=== PATIENT | male | born 1990 | race Caucasian/White ===

== ENCOUNTER 2018-01-23 11:51 | Emergency (ER) | payer MEDICAID ==
[2018-01-23] MEDS ORDERED: ONDANSETRON 4 MG TAB.RAPDIS PO ONE (12:08)
[2018-01-23] MEDS ORDERED: KETOROLAC TROMETHAMINE 60 MG/2 ML SDV IM ONE (12:09)
--- NOTE | 2018-01-23 12:11 | ER Document Report ---
ED GI/ - General Chief Complaint: Abdominal Pain Stated Complaint: ABDOMINAL PAIN Time Seen by Provider: 01/23/18 12:08 Notes: Chief complaint: abdominal pain: History of complain:( obtained from----patient) 27 years old male presents today with right lower quadrant abdominal pain since Saturday that is 4 days ago. The pain is centered around the right groin, first 2 days the pain was persistently less today kind of eased off and then came back again this morning therefore presented to the ED. Associated with nausea, no vomiting denies any hematuria dysuria or frequency. Has not had any bowel movement since last Saturday that is 5 days. No other constitutional symptoms Onset: Sudden woke him up middle of the night Duration: 4 days Severity: Moderate to severe Quality: Sharp Context: History of kidney stones Exacerbating factor and relieving factors: Change of position REVIEW OF SYSTEMS: CONSTITUTIONAL : Denies fever, chills, or sweats. Denies recent illness. EENT: Denies eye, ear, throat, or mouth pain or symptoms. Denies nasal or sinus congestion or discharge. Denies throat, tongue, or mouth swelling or difficulty swallowing. CARDIOVASCULAR: Denies chest pain. Denies palpitations or racing or irregular heart beat. Denies ankle edema. RESPIRATORY: Denies cough, cold, or chest congestion. Denies shortness of breath, difficulty breathing, or wheezing. GASTROINTESTINAL: Denies distention. Denies nausea, vomiting, or diarrhea. Denies blood in vomitus, stools, or per rectum. Denies black, tarry stools. Denies constipation. GENITOURINARY: Denies difficulty urinating, painful urination, burning, frequency, blood in urine, or discharge. FEMALE GENITOURINARY: Denies vaginal bleeding, heavy or abnormal periods, irregular periods. Denies vaginal discharge or odor. MUSCULOSKELETAL: Denies back or neck pain or stiffness. Denies joint pain or swelling. SKIN: Denies rash, lesions or sores. HEMATOLOGIC : Denies easy bruising or bleeding. LYMPHATIC: Denies swollen, enlarged glands. NEUROLOGICAL: Denies confusion or altered mental status. Denies passing out or loss of consciousness. Denies dizziness or lightheadedness. Denies headache. Denies weakness or paralysis or loss of use of either side. Denies problems with gait or speech. Denies sensory loss, numbness, or tingling. Denies seizures. PSYCHIATRIC: Denies anxiety or stress. Denies depression, suicidal ideation, or homicidal ideation. ALL OTHER SYSTEMS REVIEWED AND NEGATIVE. PHYSICAL EXAMINATION: GENERAL: Well-appearing, well-nourished and in no acute distress. HEAD: Atraumatic, normocephalic. EYES: Pupils equal round and reactive to light, extraocular movements intact, conjunctiva are normal. ENT: Nares patent, oropharynx clear without exudates. Moist mucous membranes. NECK: Normal range of motion, supple without lymphadenopathy LUNGS: Breath sounds clear to auscultation bilaterally and equal. No wheezes rales or rhonchi. HEART: Regular rate and rhythm without murmurs ABDOMEN: Soft, sharp tenderness noted in the right inguinal region, questionable inguinal hernia., nondistended abdomen. No guarding, no rebound. No masses appreciated. Genital exam-normal scrotum nontender testicles. Musculoskeletal: Normal range of motion, no pitting or edema. No cyanosis. NEUROLOGICAL: Cranial nerves grossly intact. Normal speech, normal gait. Normal sensory, motor exams PSYCH: Normal mood, normal affect. SKIN: Warm, Dry, normal turgor, no rashes or lesions noted. Dictation was performed using [employer] voice recognition software TRAVEL OUTSIDE OF THE [place] IN LAST 30 DAYS: No - Related Data Allergies/Adverse Reactions: No Known Allergies Allergy (Unverified 01/23/18 12:08) Past Medical History - Social History Smoking Status: Never Smoker Chew tobacco use (# tins/day): No Frequency of alcohol use: None Drug Abuse: None Family History: Reviewed & Not Pertinent Patient has suicidal ideation: No Patient has homicidal ideation: No Renal/ Medical History: Reports: Hx Kidney Stones. Denies: Hx Peritoneal Dialysis Past Surgical History: Reports: Hx Oral Surgery - wisdom teeth Physical Exam - Vital signs Vitals: Temp Pulse Resp BP Pulse Ox 97.5 F 57 L 22 H 131/81 H 98 01/23/18 11:55 01/23/18 11:55 01/23/18 11:55 01/23/18 11:55 01/23/18 11:55 Course - Vital Signs Vital signs: Temp Pulse Resp BP Pulse Ox 97.6 F 66 18 114/64 99 01/23/18 14:20 01/23/18 14:20 01/23/18 14:20 01/23/18 14:20 01/23/18 14:20 - Laboratory Result Diagrams: 01/23/18 12:25 01/23/18 12:25 Laboratory results interpreted by me: 01/23/18 01/23/18 12:25 13:12 Glucose 111 H Urine Protein 30 H Urine Blood MODERATE H Discharge - Discharge Clinical Impression: Right ureteral calculus, Hydronephrosis, right Condition: Stable Disposition: HOME, SELF-CARE Additional Instructions: Kidney Stone You are passing or have passed a kidney stone. These stones are usually due to increased calcium or uric acid concentrations in your urine. Stones within the kidney itself are not painful. The pain occurs as the stone leaves the kidney to pass down the long tube, called the ureter, leading to the bladder. If the stone is small, it will usually pass by itself. Most patients can pass the stone at home. You will usually receive medications for pain, nausea or vomiting, and sometimes a medication to assist in passing the kidney stone. However, if the pain is very severe or if vomiting prevents you from taking oral pain medications, you may need to return for further treatment. Drink three or four quarts of fluids per day. You will be given pain medication (if needed) and urine strainers. Strain all your urine to see if the stone passes. If your doctor has asked you to bring the stone in for analysis, return with the stone once it has passed. Return if pain or vomiting become severe, if you develop a high fever, if you are unable to pass your urine, or if other unusual symptoms occur. Take ibuprofen 800 mg every 8 hours as needed for pain. Use the Pyridium also known as Azo 200 mg every 8 hours for the next 2 days to decrease pain as well. If these 2 medications do not relieve your pain you may then try the Percocet as well. Take the Flomax 1 tablet once a day to help the stone pass more easily. Return to the emergency department for any new or concerning symptoms. Prescriptions: Oxycodone HCl/Acetaminophen [Percocet 5-325 mg Tablet] 1 - 2 tab PO Q4H PRN #15 tablet PRN Reason: Phenazopyridine HCl [Pyridium 200 mg Tablet] 200 mg PO TID #7 tablet Tamsulosin HCl [Flomax 0.4 mg Cap.sr] 0.4 mg PO DAILY #7 cap.sr.24h Forms: Return to Work Referrals: SANDRITA OTERO MD [ACTIVE STAFF] - Follow up as needed
--- NOTE | 2018-01-23 13:03 | RADIOLOGY REPORT (SQ) ---
EXAM DESCRIPTION: CT LTD RENAL STONE PROTOCOL ON COMPLETED DATE/TIME: 01/23/2018 12:48 pm REASON FOR STUDY: Right abdominal pain COMPARISON: None. TECHNIQUE: CT scan of the abdomen and pelvis performed without intravenous or oral contrast. Images reviewed with lung, soft tissue, and bone windows. Reconstructed coronal and sagittal MPR images revi ewed. All images stored on PACS. All CT scanners at this facility use dose modulation, iterative reconstruction, and/or weight based d osing when appropriate to reduce radiation dose to as low as reasonably achievable (ALARA). [facility]: Dose Right [facility]: CareDose [facility]: Dose Right [facility]: Teradose 4D [facility]: Smart Cellrox RADIATION DOSE: CT Rad equipment meets quality standard of care and radiation dose reduction techniq ues were employed. CTDIvol: 4.8 mGy. DLP: 241 mGy-cm.mGy. LIMITATIONS: None. FINDINGS: LOWER CHEST: No significant findings. No nodules or infiltrates. NON-CONTRASTED LIVER, SPLEEN, ADRENALS: Evaluation limited by lack of IV contrast. No identified sign ificant masses. PANCREAS: No masses. No peripancreatic inflammatory changes. GALLBLADDER: No identified stones by CT criteria. No inflammatory changes to suggest cholecystitis. RIGHT KIDNEY AND URETER: No suspicious masses. Assessment limited by lack of IV contrast. Tiny less than 2 mm intrarenal nonobstructive calculi are present right mid and lower pole kidney. There is a 3 mm stone in the right ureter, at the level where the ureter crosses over the iliac vessels best sh own on axial image 54 and coronal image 30. Very mild right hydronephrosis and upper hydroureter. LEFT KIDNEY AND URETER: No suspicious masses. Assessment limited by lack of IV contrast. 3 mm left midpole intrarenal nonobstructive stone. No hydronephrosis or hydroureter. AORTA AND RETROPERITONEUM: No aneurysm. No retroperitoneal masses or adenopathy. BOWEL AND PERITONEAL CAVITY: No obvious masses or inflammatory changes. No free fluid. APPENDIX: Normal. PELVIS, BLADDER, AND ABDOMINAL WALL:No abnormal masses. No free fluid. Bladder normal. BONES: No significant findings. OTHER: No other significant finding. IMPRESSION: 3 mm calculus right ureter at the level where the ureter crosses over the iliac vessels. This causes mild right hydronephrosis and upper hydroureter. COMMENT: Quality ID # [id number]: Final reports with documentation of one or more dose reduction techniques (e.g., Automated exposure control, adjustment of the mA and/or kV according to patient size, use of iterative reconstruction technique) TECHNICAL DOCUMENTATION: JOB ID: [id number] [employer]- All Rights Reserved Reading location - IP/workstation name: [email or web address]
[2018-01-23 13:04] LABS: ABSOLUTE EOSINOPHILS # (AUTO) 0.1 10^3/uL (0.0-0.6); ABSOLUTE LYMPHOCYTES (AUTO) 1.5 10^3/uL (0.5-4.7); ABSOLUTE MONOCYTES (AUTO) 0.4 10^3/uL (0.1-1.4); ABSOLUTE NEUT (AUTO) 2.6 10^3/uL (1.7-8.2); BASOPHILS % (AUTO) 0.7 % (0-2); EOSINOPHILS % (AUTO) 1.9 % (0-6); HEMATOCRIT 41.7 % (37.9-51.0); HEMOGLOBIN 14.3 g/dL (13.5-17.0); LYMPHOCYTES % (AUTO) 33.1 % (13-45); MEAN CORPUSCULAR HEMOGLOBIN 30.5 pg (27.0-33.4); MEAN CORPUSCULAR HGB CONC 34.3 g/dL (32.0-36.0); MEAN CORPUSCULAR VOLUME 89 fl (80-97); MONOCYTES % (AUTO) 7.9 % (3-13); PLATELET COUNT 247 10^3/uL (150-450); RED BLOOD COUNT 4.69 10^6/uL (4.35-5.55); RED CELL DISTRIBUTION WIDTH 12.4 % (11.5-14.0); SEGMENTED NEUTROPHILS % (AUTO) 56.4 % (42-78); TOTAL CELLS COUNTED % (AUTO) 100 %; WHITE BLOOD COUNT 4.6 10^3/uL (4.0-10.5)
[2018-01-23 13:18] LABS: ALANINE AMINOTRANSFERASE 26 U/L (21-72); ALBUMIN 4.8 g/dL (3.5-5.0); ALKALINE PHOSPHATASE 49 U/L (38-126); ANION GAP 13 (5-19); ASPARTATE AMINO TRANSFERASE 26 U/L (17-59); BILIRUBIN,DIRECT 0.2 mg/dL (0.0-0.4); BILIRUBIN,TOTAL 0.7 mg/dL (0.2-1.3); BLOOD UREA NITROGEN 12 mg/dL (7-20); CARBON DIOXIDE 26 mmol/L (22-30); CHLORIDE 103 mmol/L (98-107); GLUCOSE 111 mg/dL (75-110); POTASSIUM 4.4 mmol/L (3.6-5.0); SODIUM 141.9 mmol/L (137-145); TOTAL PROTEIN 7.8 g/dL (6.3-8.2)
--- NOTE | 2018-01-23 13:49 | ER Document Report ---
ED General - General Mode of Arrival: Ambulatory Information source: Patient TRAVEL OUTSIDE OF THE [place] IN LAST 30 DAYS: No <LUCAS CROOK - Last Filed: 01/23/18 18:52> <SHAYE GRANT - Last Filed: 01/23/18 18:54> - General Chief Complaint: Abdominal Pain Stated Complaint: ABDOMINAL PAIN Time Seen by Provider: 01/23/18 12:08 Notes: 27 y.o male with a PMHx of kidney stones presents to the ED with ABD pain. He reports that yesterday he had mild pain to his RLQ, and today he was experiencing excruciating pain. Pt states that he hasn't had a BM the last 2 days and states that he has very regular BMs. He denies any nausea or vomiting, blood in his urine or dysuria. He states that even though he has had a kidney stone in the past it did not feel like this before. (LUCAS CROOK) - Related Data Allergies/Adverse Reactions: No Known Allergies Allergy (Unverified 01/23/18 12:08) Past Medical History - General Information source: Patient - Social History Smoking Status: Never Smoker Chew tobacco use (# tins/day): No Frequency of alcohol use: None Drug Abuse: None Patient has suicidal ideation: No Patient has homicidal ideation: No Renal/ Medical History: Reports: Hx Kidney Stones. Denies: Hx Peritoneal Dialysis Past Surgical History: Reports: Hx Oral Surgery - wisdom teeth <LUCAS CROOK - Last Filed: 01/23/18 18:52> - Social History Family History: None <SHAYE GRANT - Last Filed: 01/23/18 18:54> Review of Systems - Review of Systems Constitutional: No symptoms reported EENT: No symptoms reported Cardiovascular: No symptoms reported Respiratory: No symptoms reported Gastrointestinal: See HPI, Abdominal pain, Constipation. denies: Nausea, Vomiting Genitourinary: See HPI. denies: Dysuria, Hematuria Male Genitourinary: No symptoms reported Musculoskeletal: No symptoms reported Skin: No symptoms reported Hematologic/Lymphatic: No symptoms reported Neurological/Psychological: No symptoms reported -: Yes All other systems reviewed and negative <LUCAS CROOK - Last Filed: 01/23/18 18:52> Physical Exam <LUCAS CROOK - Last Filed: 01/23/18 18:52> <SHAYE GRANT - Last Filed: 01/23/18 18:54> - Vital signs Vitals: Temp Pulse Resp BP Pulse Ox 97.5 F 57 L 22 H 131/81 H 98 01/23/18 11:55 01/23/18 11:55 01/23/18 11:55 01/23/18 11:55 01/23/18 11:55 - Notes Notes: PHYSICAL EXAM GENERAL: Alert, interacts well. No acute distress. HEAD: Normocephalic, atraumatic. EYES: Pupils equal, round, and reactive to light. Extraocular movements intact. ENT: Oral mucosa moist, tongue midline. NECK: Full range of motion. Supple. Trachea midline. LUNGS: Clear to auscultation bilaterally, no wheezes, rales, or rhonchi. No respiratory distress. HEART: Regular rate and rhythm. No murmurs, gallops, or rubs. ABDOMEN: Soft. Tender to the RLQ. Non-distended. Bowel sounds present in all 4 quadrants. No guarding, rebound, or rigidity. EXTREMITIES: Moves all 4 extremities spontaneously. No edema, radial and dorsalis pedis pulses 2/4 bilaterally. No cyanosis. NEUROLOGICAL: Alert and oriented x3. Normal speech. PSYCH: Normal affect, normal mood. (LUCAS CROOK) Course - Laboratory Result Diagrams: 01/23/18 12:25 01/23/18 12:25 <LUCAS CROOK - Last Filed: 01/23/18 18:52> - Laboratory Result Diagrams: 01/23/18 12:25 01/23/18 12:25 <SHAYE GRANT - Last Filed: 01/23/18 18:54> - Re-evaluation Re-evalutation: 01/23/18 14:03 CBC unremarkable, CMP grossly unremarkable, urinalysis shows moderate blood but no signs of infection. CT scan shows a 3 mm stone in the right mid ureter with mild right hydronephrosis. Patient will be discharged to home with pain medication, Pyridium and Flomax. Patient has had kidney stones in the past. ( SHAYE GRANT) - Vital Signs Vital signs: Temp Pulse Resp BP Pulse Ox 97.6 F 66 18 114/64 99 01/23/18 14:20 01/23/18 14:20 01/23/18 14:20 01/23/18 14:20 01/23/18 14:20 - Laboratory Laboratory results interpreted by me: 01/23/18 01/23/18 12:25 13:12 Glucose 111 H Urine Protein 30 H Urine Blood MODERATE H Discharge <LUCAS CROOK - Last Filed: 01/23/18 18:52> <VICKIELYLESHAYE - Last Filed: 01/23/18 18:54> - Discharge Clinical Impression: Right ureteral calculus, Hydronephrosis, right Condition: Stable Disposition: HOME, SELF-CARE Additional Instructions: Kidney Stone You are passing or have passed a kidney stone. These stones are usually due to increased calcium or uric acid concentrations in your urine. Stones within the kidney itself are not painful. The pain occurs as the stone leaves the kidney to pass down the long tube, called the ureter, leading to the bladder. If the stone is small, it will usually pass by itself. Most patients can pass the stone at home. You will usually receive medications for pain, nausea or vomiting, and sometimes a medication to assist in passing the kidney stone. However, if the pain is very severe or if vomiting prevents you from taking oral pain medications, you may need to return for further treatment. Drink three or four quarts of fluids per day. You will be given pain medication (if needed) and urine strainers. Strain all your urine to see if the stone passes. If your doctor has asked you to bring the stone in for analysis, return with the stone once it has passed. Return if pain or vomiting become severe, if you develop a high fever, if you are unable to pass your urine, or if other unusual symptoms occur. Take ibuprofen 800 mg every 8 hours as needed for pain. Use the Pyridium also known as Azo 200 mg every 8 hours for the next 2 days to decrease pain as well. If these 2 medications do not relieve your pain you may then try the Percocet as well. Take the Flomax 1 tablet once a day to help the stone pass more easily. Return to the emergency department for any new or concerning symptoms. Prescriptions: Oxycodone HCl/Acetaminophen [Percocet 5-325 mg Tablet] 1 - 2 tab PO Q4H PRN #15 tablet PRN Reason: Phenazopyridine HCl [Pyridium 200 mg Tablet] 200 mg PO TID #7 tablet Tamsulosin HCl [Flomax 0.4 mg Cap.sr] 0.4 mg PO DAILY #7 cap.sr.24h Forms: Return to Work Referrals: SANDRITA OTERO MD [ACTIVE STAFF] - Follow up as needed Scribe Attestation: 01/23/18 18:53 I personally performed the services described in the documentation, reviewed and edited the documentation which was dictated to the scribe in my presence, and it accurately records my words and actions. (SHAYE GRANT) Scribe Documentation - Scribe Written by Juan:: Juan Barbosa [id number] 01/23/18 acting as scribe for :: Pee <LUCAS CROOK - Last Filed: 01/23/18 18:52>
[2018-01-23] MEDS ORDERED: TAMSULOSIN HCL 0.4 MG CAP.SR.24H PO ONE (13:52)
[2018-01-23] MEDS ORDERED: PHENAZOPYRIDINE HCL 200 MG TABLET PO ONE (13:52)
[2018-01-23] MEDS ORDERED: OXYCODONE-ACETAMINOPHEN 5-325 MG TABLET PO ONE (13:52)
[2018-01-23 13:53] LABS: AMORPHOUS SEDIMENT,URINE TRACE /HPF; APPEARANCE,URINE SLIGHTLY-CLOUDY; BILIRUBIN,URINE NEGATIVE (NEGATIVE); COLOR,URINE YELLOW; GLUCOSE, URINE NEGATIVE (NEGATIVE); KETONES,URINE NEGATIVE (NEGATIVE); LEUKOCYTE ESTERASE,URINE NEGATIVE (NEGATIVE); NITRITE,URINE NEGATIVE (NEGATIVE); PROTEIN,URINE 30 mg/dL (NEGATIVE); URINE SPECIFIC GRAVITY 1.016; UROBILINOGEN,URINE NEGATIVE mg/dL (<2.0)
[2018-01-23 14:27] VITALS: BP 114/64
== END 2018-01-23 14:29 | disposition home or self-care (01) ==
LOC: ER 11:51
DX: N13.2 Hydronephrosis with renal and ureteral calculous obstruction (principal); K59.00 Constipation, unspecified
CPT/HCPCS: 99284; 96372; 36415; 85025; 80076; 80048; 81001; 76380; J1885; S0119; J3490 ×2

== ENCOUNTER 2018-02-27 11:13 | Emergency (ER) | payer MEDICAID ==
--- NOTE | 2018-02-27 11:57 | ER Document Report ---
ED Medical Screen (RME) - General TRAVEL OUTSIDE OF THE [place] IN LAST 30 DAYS: No <RAYRAY HENNESSY - Last Filed: 02/27/18 11:56> <JL REYNOLDS - Last Filed: 02/27/18 13:29> - General Chief Complaint: Chest Pain Stated Complaint: CHEST PAIN Time Seen by Provider: 02/27/18 11:41 Notes: 27-year-old male patient complains of 4 day history of sharp stabbing left anterior chest pains that come between 1 and 3 times in a day, and last between 3 and 10 minutes. He reports it "takes my breath", and "feels like I am getting stabbed". It is not made worse with breathing or lifting or twisting chest and trunk. I have greeted and performed a rapid initial assessment of this patient. A comprehensive ED assessment and evaluation of the patient, analysis of test results and completion of the medical decision making process will be conducted by additional ED providers. (RAYRAY HENNESSY) - Related Data Allergies/Adverse Reactions: No Known Allergies Allergy (Unverified 01/23/18 12:08) Past Medical History - Social History Chew tobacco use (# tins/day): No Frequency of alcohol use: Occasional Drug Abuse: None Renal/ Medical History: Reports: Hx Kidney Stones. Denies: Hx Peritoneal Dialysis Past Surgical History: Reports: Hx Oral Surgery - wisdom teeth <RAYRAY HENNESSY - Last Filed: 02/27/18 11:56> - Vital signs Vitals: Temp Pulse Resp BP Pulse Ox 97.7 F 59 L 16 117/53 L 97 02/27/18 11:26 02/27/18 11:26 02/27/18 11:26 02/27/18 11:26 02/27/18 11:26 Course - Laboratory Result Diagrams: 02/27/18 11:58 02/27/18 11:58 <JL REYNOLDS - Last Filed: 02/27/18 13:29> - Vital Signs Vital signs: Temp Pulse Resp BP Pulse Ox 97.7 F 59 L 16 117/53 L 97 02/27/18 11:26 02/27/18 11:26 02/27/18 11:26 02/27/18 11:26 02/27/18 11:26 Doctor's Discharge <FREDY HENNESSYALL - Last Filed: 02/27/18 11:56> <JL REYNOLDS - Last Filed: 02/27/18 13:29> - Discharge Clinical Impression: Chest pain, non-cardiac Condition: Stable Disposition: HOME, SELF-CARE Additional Instructions: CHEST PAIN OF UNCLEAR CAUSE: The exact cause of your chest pain isn't clear. Fortunately, there is no evidence of a dangerous medical condition. Further testing may be required to find the source of the pain. Most often, we find that this pain is coming from the chest wall -- the muscles or rib joints in the chest. But chest pain can come from the lung and lung lining, the esophagus, the heart valves or heart lining, and even the stomach or gallbladder. Rest. Eat lightly until the pain is gone. We may prescribe medicine for pain and inflammation. You should call the physician immediately if the pain radiates to the shoulder, jaw or arms; if you start to run a fever or develop a cough; or if you develop shortness of breath, or other new or alarming symptoms. NORMAL EXAM AND WORKUP: At this time, your examination and workup show no significant abnormality. No significant abnormal physical findings were noted. All laboratory, EKG, and imaging (x-ray, CT scans, ultrasound) studies that were ordered show no significant abnormality. Although your examination and all studies that were ordered showed no significant abnormal finding, there are no examinations and no studies that are 100% accurate. There is always the possibility that some abnormality could exist and not be detected with physical examination or within the limits and capabilities of laboratory and other studies. You should return or follow up as you were instructed on your visit today for further evaluation if your symptoms do not resolve. CHEST WALL PAIN: Your chest pain may be coming from the chest wall. This is often caused by straining the muscles or joints in the chest during physical activity, direct trauma, coughing, or vigorous vomiting. Persons with arthritis are especially prone to this type of pain, due to inflammation of the cartilage joints near the breast bone. Occasionally, no cause can be found. Rest from strenuous physical activity. This kind of chest pain is usually made worse by movement of the chest. Depending on the symptoms, we may prescribe medicine for pain, muscle relaxation, and antiinflammatory effects. If the pain is new, and seems to be due to muscle strain, cold packs can help. Otherwise, apply gentle warmth to the painful area for 15 minutes every hour or two. You should call contact the doctor immediately if things change. Further evaluation is needed if you develop a fever or cough, if the nature of the pain changes, or if you become short of breath. Avoid any strenuous activity or extensive activity for the next week. You may work, but light duty would be preferable for the next week. FOLLOW-UP CARE: If you have been referred to a physician for follow-up care, call the physician s office for an appointment as you were instructed or within the next two days. If you experience worsening or a significant change in your symptoms, notify the physician immediately or return to the Emergency Department at any time for re-evaluation. Forms: Return to Work
[2018-02-27 12:29] LABS: ABSOLUTE EOSINOPHILS # (AUTO) 0.1 10^3/uL (0.0-0.6); ABSOLUTE LYMPHOCYTES (AUTO) 1.4 10^3/uL (0.5-4.7); ABSOLUTE MONOCYTES (AUTO) 0.3 10^3/uL (0.1-1.4); ABSOLUTE NEUT (AUTO) 2.2 10^3/uL (1.7-8.2); BASOPHILS % (AUTO) 0.9 % (0-2); EOSINOPHILS % (AUTO) 2.5 % (0-6); HEMATOCRIT 39.9 % (37.9-51.0); HEMOGLOBIN 13.6 g/dL (13.5-17.0); LYMPHOCYTES % (AUTO) 34.5 % (13-45); MEAN CORPUSCULAR HEMOGLOBIN 30.4 pg (27.0-33.4); MEAN CORPUSCULAR HGB CONC 34.1 g/dL (32.0-36.0); MEAN CORPUSCULAR VOLUME 89 fl (80-97); MONOCYTES % (AUTO) 7.4 % (3-13); PLATELET COUNT 230 10^3/uL (150-450); RED BLOOD COUNT 4.48 10^6/uL (4.35-5.55); SEGMENTED NEUTROPHILS % (AUTO) 54.7 % (42-78); TOTAL CELLS COUNTED % (AUTO) 100 %; WHITE BLOOD COUNT 4.1 10^3/uL (4.0-10.5)
[2018-02-27 12:50] LABS: ALANINE AMINOTRANSFERASE 28 U/L (21-72); ALBUMIN 4.5 g/dL (3.5-5.0); ALKALINE PHOSPHATASE 45 U/L (38-126); ANION GAP 10 (5-19); ASPARTATE AMINO TRANSFERASE 24 U/L (17-59); BILIRUBIN,DIRECT 0.2 mg/dL (0.0-0.4); BILIRUBIN,TOTAL 0.6 mg/dL (0.2-1.3); BLOOD UREA NITROGEN 14 mg/dL (7-20); CALCIUM 9.1 mg/dL (8.4-10.2); CARBON DIOXIDE 29 mmol/L (22-30); CHLORIDE 105 mmol/L (98-107); CREATINE KINASE 93 U/L (55-170); GLUCOSE 84 mg/dL (75-110); POTASSIUM 4.7 mmol/L (3.6-5.0); TOTAL PROTEIN 7.3 g/dL (6.3-8.2)
--- NOTE | 2018-02-27 12:55 | RADIOLOGY REPORT (SQ) ---
EXAM DESCRIPTION: CHEST 2 VIEWS COMPLETED DATE/TIME: 02/27/2018 12:48 pm REASON FOR STUDY: Intermittent sharp stabbing chest pains COMPARISON: None. EXAM PARAMETERS: NUMBER OF VIEWS: two views TECHNIQUE: Digital Frontal and Lateral radiographic views of the chest acquired. RADIATION DOSE: NA LIMITATIONS: none FINDINGS: LUNGS AND PLEURA: No opacities, masses or pneumothorax. No pleural effusion. MEDIASTINUM AND HILAR STRUCTURES: No masses or contour abnormalities. HEART AND VASCULAR STRUCTURES: Heart normal size. No evidence for failure. BONES: No acute findings. HARDWARE: None in the chest. OTHER: No other significant finding. IMPRESSION: NO ACUTE RADIOGRAPHIC FINDING IN THE CHEST. TECHNICAL DOCUMENTATION: JOB ID: [id number] [employer]- All Rights Reserved Reading location - IP/workstation name: [email or web address]
[2018-02-27 13:40] VITALS: BP 111/73
--- NOTE | 2018-02-27 19:07 | ER Document Report ---
ED General - General Chief Complaint: Chest Pain Stated Complaint: CHEST PAIN Time Seen by Provider: 02/27/18 11:41 Notes: Patient is here to be evaluated for chest pain she has been experiencing for the past 4 days. He says these pains are sharp and shooting in the front of his left chest although sometimes it goes across to the right side. He has not been associating them with anything except he does play video games a lot. No other unusual physical activities. Patient has felt dizzy at times. He is also worried he may have a blood clot in his lungs. Has not been running any fevers. Denies feeling short of breath. No cough or cold or chest congestion recently. TRAVEL OUTSIDE OF THE [place] IN LAST 30 DAYS: No - Related Data Allergies/Adverse Reactions: No Known Allergies Allergy (Unverified 01/23/18 12:08) Past Medical History - Social History Smoking Status: Former Smoker Chew tobacco use (# tins/day): No Frequency of alcohol use: Occasional Drug Abuse: None Family History: Reviewed & Not Pertinent Patient has suicidal ideation: No Patient has homicidal ideation: No Renal/ Medical History: Reports: Hx Kidney Stones Past Surgical History: Reports: Hx Oral Surgery - wisdom teeth Review of Systems - Review of Systems Notes: REVIEW OF SYSTEMS: CONSTITUTIONAL : Denies fever. EENT: Denies eye, ear, nose or mouth or throat pain or other symptoms. CARDIOVASCULAR: See HPI. RESPIRATORY: Denies cough, chest congestion, or shortness of breath. GASTROINTESTINAL: Denies abdominal pain or nausea, vomiting, or diarrhea. GENITOURINARY: Denies difficulty or painful urinating, urinary frequency, blood in urine. MUSCULOSKELETAL: Denies back or neck pain. Denies joint pain or swelling. SKIN: Denies rash or skin lesions. NEUROLOGICAL: Denies LOC or altered mental status. Denies headache. Denies sensory loss or motor deficits. ALL OTHER SYSTEMS REVIEWED AND NEGATIVE. Physical Exam - Vital signs Vitals: Temp Pulse Resp BP Pulse Ox 97.7 F 59 L 16 117/53 L 97 02/27/18 11:26 02/27/18 11:26 02/27/18 11:26 02/27/18 11:26 02/27/18 11:26 Interpretation: Normal - Notes Notes: PHYSICAL EXAMINATION: GENERAL: Well-appearing, in no acute distress. Vital signs are all normal. HEAD: Atraumatic, normocephalic. EYES: Pupils equal round and reactive to light, extraocular movements intact. ENT: oropharynx clear without exudates. Moist mucous membranes. NECK: Normal range of motion, supple. LUNGS: Breath sounds clear and equal bilaterally. No chest wall pain to palpation or pressing. HEART: Regular rate and rhythm without murmurs. ABDOMEN: Soft, nontender. No guarding or rebound. No masses. BACK: No tenderness throughout entire back. EXTREMITIES: Normal range of motion without pain. Negative Homans bilaterally. NEUROLOGICAL: Normal speech, normal gait. Normal sensory, motor, and reflex exams. Awake, alert, and oriented x3. Cranial nerves normal. PSYCH: Normal mood, normal affect. SKIN: Warm, dry, no rashes. Course - Vital Signs Vital signs: Temp Pulse Resp BP Pulse Ox 97.9 F 60 16 111/73 99 02/27/18 13:40 02/27/18 13:40 02/27/18 13:40 02/27/18 13:40 02/27/18 13:40 - Laboratory Result Diagrams: 02/27/18 11:58 02/27/18 11:58 - Diagnostic Test Radiology results interpreted by me: 02/27/18 19:07 Chest x-ray was normal. - EKG Interpretation by Fl EKG shows normal: Sinus rhythm Rate: Normal Rhythm: NSR Additional EKG results interpreted by ar: 02/27/18 19:07 EKG is normal. Discharge - Discharge Clinical Impression: Chest pain, non-cardiac Condition: Stable Disposition: HOME, SELF-CARE Additional Instructions: CHEST PAIN OF UNCLEAR CAUSE: The exact cause of your chest pain isn't clear. Fortunately, there is no evidence of a dangerous medical condition. Further testing may be required to find the source of the pain. Most often, we find that this pain is coming from the chest wall -- the muscles or rib joints in the chest. But chest pain can come from the lung and lung lining, the esophagus, the heart valves or heart lining, and even the stomach or gallbladder. Rest. Eat lightly until the pain is gone. We may prescribe medicine for pain and inflammation. You should call the physician immediately if the pain radiates to the shoulder, jaw or arms; if you start to run a fever or develop a cough; or if you develop shortness of breath, or other new or alarming symptoms. NORMAL EXAM AND WORKUP: At this time, your examination and workup show no significant abnormality. No significant abnormal physical findings were noted. All laboratory, EKG, and imaging (x-ray, CT scans, ultrasound) studies that were ordered show no significant abnormality. Although your examination and all studies that were ordered showed no significant abnormal finding, there are no examinations and no studies that are 100% accurate. There is always the possibility that some abnormality could exist and not be detected with physical examination or within the limits and capabilities of laboratory and other studies. You should return or follow up as you were instructed on your visit today for further evaluation if your symptoms do not resolve. CHEST WALL PAIN: Your chest pain may be coming from the chest wall. This is often caused by straining the muscles or joints in the chest during physical activity, direct trauma, coughing, or vigorous vomiting. Persons with arthritis are especially prone to this type of pain, due to inflammation of the cartilage joints near the breast bone. Occasionally, no cause can be found. Rest from strenuous physical activity. This kind of chest pain is usually made worse by movement of the chest. Depending on the symptoms, we may prescribe medicine for pain, muscle relaxation, and antiinflammatory effects. If the pain is new, and seems to be due to muscle strain, cold packs can help. Otherwise, apply gentle warmth to the painful area for 15 minutes every hour or two. You should call contact the doctor immediately if things change. Further evaluation is needed if you develop a fever or cough, if the nature of the pain changes, or if you become short of breath. Avoid any strenuous activity or extensive activity for the next week. You may work, but light duty would be preferable for the next week. FOLLOW-UP CARE: If you have been referred to a physician for follow-up care, call the physician s office for an appointment as you were instructed or within the next two days. If you experience worsening or a significant change in your symptoms, notify the physician immediately or return to the Emergency Department at any time for re-evaluation. Forms: Return to Work
--- NOTE | 2018-03-01 10:39 | EKG REPORT ---
SEVERITY:- NORMAL ECG - SINUS RHYTHM : Confirmed by: Julian Emanuel MD 01-Mar-2018 10:37:38
== END 2018-02-27 13:40 | disposition home or self-care (01) ==
LOC: ER 11:13
DX: R07.89 Other chest pain (principal); R42 Dizziness and giddiness; Z87.891 Personal history of nicotine dependence
CPT/HCPCS: 36415; 71046; 80053; 82550; 84484; 85025; 85379; 93005; 93010; 99285

== ENCOUNTER 2018-10-06 16:00 | Emergency (ER) | payer MEDICAID ==
[2018-10-06 16:24] VITALS: BP 124/77
[2018-10-06] MEDS ORDERED: METOCLOPRAMIDE HCL ORAL SOLN 10 MG/10 ML UDCUP PO ONE (17:51)
[2018-10-06] MEDS ORDERED: FAMOTIDINE 20 MG TABLET PO ONE (17:51)
[2018-10-06] MEDS ORDERED: MAG HYDROX/AL HYDROX/SIMETH SUSP 30 ML UDCUP PO ONE (17:51)
[2018-10-06] MEDS ORDERED: LIDOCAINE 2% VISCOUS SOLN 20 ML UDCUP PO ONE (17:51)
--- NOTE | 2018-10-06 17:53 | ER Document Report ---
ED Medical Screen (RME) - General Chief Complaint: Cough Stated Complaint: ABDOMINAL PAIN Time Seen by Provider: 10/06/18 17:44 Mode of Arrival: Ambulatory Information source: Patient Notes: 28-year-old male presents emergency department with complaints of epigastric abdominal pain that started at 1 AM. He describes it as a sharp and stabbing sensation located in the epigastric area. No radiation. No alleviating or exacerbating factors. Patient states that he tried Pepto-Bismol without any relief. He is having associated diarrhea but denies any nausea, vomiting, dysuria, hematuria, increased urgency, increased frequency, testicular pain, penile discharge. I have greeted and performed a rapid initial assessment of this patient. A comprehensive ED assessment and evaluation of the patient, analysis of test results and completion of the medical decision making process will be conducted by additional ED providers. PHYSICAL EXAMINATION: GENERAL: Well-appearing, well-nourished and in no acute distress. HEAD: Atraumatic, normocephalic. EYES: Pupils equal round extraocular movements intact, conjunctiva are normal. ENT: Nares patent NECK: Normal range of motion LUNGS: No respiratory distress Musculoskeletal: Normal range of motion NEUROLOGICAL: Normal speech, normal gait. TRAVEL OUTSIDE OF THE [place] IN LAST 30 DAYS: No - Related Data Allergies/Adverse Reactions: No Known Allergies Allergy (Unverified 01/23/18 12:08) Past Medical History - Social History Chew tobacco use (# tins/day): Yes Frequency of alcohol use: None Drug Abuse: None Renal/ Medical History: Reports: Hx Kidney Stones. Denies: Hx Peritoneal Dialysis Past Surgical History: Reports: Hx Oral Surgery - wisdom teeth Physical Exam - Vital signs Vitals: Temp Pulse Resp BP Pulse Ox 98.3 F 80 16 124/77 99 10/06/18 16:22 10/06/18 16:22 10/06/18 16:22 10/06/18 16:22 10/06/18 16:22 Course - Vital Signs Vital signs: Temp Pulse Resp BP Pulse Ox 98.3 F 80 16 124/77 99 10/06/18 16:22 10/06/18 16:22 10/06/18 16:22 10/06/18 16:22 10/06/18 16:22
--- NOTE | 2018-10-06 18:15 | RADIOLOGY REPORT (SQ) ---
EXAM DESCRIPTION: ACUTE ABDOMEN SERIES COMPLETED DATE/TIME: 10/06/2018 6:00 pm REASON FOR STUDY: epigastric abdominal pain COMPARISON: AP chest 02/27/2018 CT abdomen pelvis 01/23/2018 NUMBER OF VIEWS: Three views. TECHNIQUE: Frontal chest, supine abdomen and upright abdomen radiographic images acquired. LIMITATIONS: None. FINDINGS: CHEST: Lungs clear of infiltrates. Cardiac silhouette size, ivana unremarkable. FREE AIR: None. No abnormal gas collections. BOWEL GAS PATTERN: Nonobstructive pattern. No dilated loops or air fluid levels. CALCIFICATIONS: Calcified pelvic phleboliths and splenic granulomas. Tiny left midpole intrarenal nonobstructive stone seen on CT 01/23/2018 is seen over the left mid pole kidney, marked with an arrow. This measures less than 2 mm size. No OS calcifications are seen over the expected course of the right kidney or ureter. HARDWARE: None in the abdomen. SOFT TISSUES: No gross mass or suggestion of organomegaly. BONES: No acute fracture. No worrisome bone lesions. OTHER: No other significant finding. IMPRESSION: NO RADIOGRAPHIC EVIDENCE FOR ACUTE ABDOMINAL DISEASE. TECHNICAL DOCUMENTATION: JOB ID: [id number] [employer]- All Rights Reserved Reading location - IP/workstation name: [facility]
[2018-10-06 18:19] LABS: ABSOLUTE EOSINOPHILS # (AUTO) 0.1 10^3/uL (0.0-0.6); ABSOLUTE LYMPHOCYTES (AUTO) 1.8 10^3/uL (0.5-4.7); ABSOLUTE MONOCYTES (AUTO) 0.4 10^3/uL (0.1-1.4); BASOPHILS % (AUTO) 0.5 % (0-2); EOSINOPHILS % (AUTO) 1.8 % (0-6); HEMATOCRIT 41.9 % (37.9-51.0); HEMOGLOBIN 14.3 g/dL (13.5-17.0); LYMPHOCYTES % (AUTO) 33.1 % (13-45); MEAN CORPUSCULAR HEMOGLOBIN 30.2 pg (27.0-33.4); MEAN CORPUSCULAR VOLUME 89 fl (80-97); MONOCYTES % (AUTO) 7.4 % (3-13); PLATELET COUNT 262 10^3/uL (150-450); RED BLOOD COUNT 4.73 10^6/uL (4.35-5.55); RED CELL DISTRIBUTION WIDTH 12.6 % (11.5-14.0); SEGMENTED NEUTROPHILS % (AUTO) 57.2 % (42-78); TOTAL CELLS COUNTED % (AUTO) 100 %; WHITE BLOOD COUNT 5.3 10^3/uL (4.0-10.5)
[2018-10-06 18:39] LABS: ALANINE AMINOTRANSFERASE 27 U/L (21-72); ALKALINE PHOSPHATASE 58 U/L (38-126); ANION GAP 10 (5-19); ASPARTATE AMINO TRANSFERASE 27 U/L (17-59); BILIRUBIN,DIRECT 0.1 mg/dL (0.0-0.4); BILIRUBIN,TOTAL 0.7 mg/dL (0.2-1.3); BLOOD UREA NITROGEN 13 mg/dL (7-20); CALCIUM 9.4 mg/dL (8.4-10.2); CARBON DIOXIDE 29 mmol/L (22-30); CHLORIDE 103 mmol/L (98-107); GLUCOSE 90 mg/dL (75-110); LIPASE 48.4 U/L (23-300); POTASSIUM 4.4 mmol/L (3.6-5.0); TOTAL PROTEIN 7.7 g/dL (6.3-8.2)
[2018-10-06 20:05] LABS: APPEARANCE,URINE CLOUDY; BILIRUBIN,URINE NEGATIVE (NEGATIVE); COLOR,URINE YELLOW; GLUCOSE, URINE NEGATIVE (NEGATIVE); KETONES,URINE TRACE mg/dL (NEGATIVE); LEUKOCYTE ESTERASE,URINE NEGATIVE (NEGATIVE); NITRITE,URINE NEGATIVE (NEGATIVE); PROTEIN,URINE 30 mg/dL (NEGATIVE); URINE SPECIFIC GRAVITY 1.018; UROBILINOGEN,URINE NEGATIVE mg/dL (<2.0)
--- NOTE | 2018-10-06 20:17 | ER Document Report ---
ED General - General Chief Complaint: Cough Stated Complaint: ABDOMINAL PAIN Time Seen by Provider: 10/06/18 17:44 Mode of Arrival: Ambulatory Information source: Patient TRAVEL OUTSIDE OF THE [place] IN LAST 30 DAYS: No - HPI Patient complains to provider of: Epigastric pain Onset: Last week Onset/Duration: Gradual Quality of pain: Burning Severity: Mild Context: High stress/anxiety Associated symptoms: None Exacerbated by: Denies Relieved by: Denies Similar symptoms previously: No Recently seen / treated by doctor: No Notes: 28-year-old male coming in today with epigastric abdominal pain for the past several days. It is not affected by food. No vomiting. No diarrhea. No fevers or chills. Does not radiate to his back. - Related Data Allergies/Adverse Reactions: No Known Allergies Allergy (Unverified 01/23/18 12:08) Past Medical History - General Information source: Patient - Social History Smoking Status: Never Smoker Chew tobacco use (# tins/day): Yes Frequency of alcohol use: None Drug Abuse: None Family History: Reviewed & Not Pertinent Patient has suicidal ideation: No Patient has homicidal ideation: No Renal/ Medical History: Reports: Hx Kidney Stones. Denies: Hx Peritoneal Dialysis Past Surgical History: Reports: Hx Oral Surgery - wisdom teeth Review of Systems - Review of Systems Notes: Constitutional: No fevers. No chills. EENT: No eye redness. No eye pain. No ear pain. No sore throat. Cardiovascular: No chest pain. No palpitations. Respiratory: No cough. No shortness of breath. No respiratory distress. Gastrointestinal: Epigastric abdominal pain. No nausea, vomiting, or diarrhea. Genitourinary: Atraumatic. No lesions. No pain. No discharge. Musculoskeletal: Atraumatic. No swelling. No deformities. Skin: No rash or lesions. Lymphatic: No swollen lymph nodes. Neurologic: No headache. No syncope. Psychiatric: No suicidal or homicidal ideation. Physical Exam - Vital signs Vitals: Temp Pulse Resp BP Pulse Ox 98.3 F 80 16 124/77 99 10/06/18 16:22 10/06/18 16:22 10/06/18 16:22 10/06/18 16:22 10/06/18 16:22 - Notes Notes: General: Well-developed, well-nourished. In no acute distress. Non-toxic appearing. Cardiac: Well-perfused. Regular rate and rhythm. No murmurs, rubs, or gallops. Pulmonary: No respiratory distress. No cyanosis. Bilateral lung fiels are clear to auscultation. Abdominal: Epigastric and left upper quadrant tenderness to palpation. Abdomen soft. Nondistended. Nontympanitic. Bowel sounds are present in all 4 quadrants. No guarding or rebound HEENT: Head is atraumatic. Conjunctivae not reddened. No tearing. PERRL. EOMI. Orbits atraumatic. No periorbital swelling or erythema. Oropharynx is without erythema, swelling, or exudates. Neck: Supple. No adenopathy. No meningismus. Dermatologic: Warm with good turgor. No rash. Atraumatic. Chest: Atraumatic. No chest wall tenderness to palpation. Musculoskeletal: Moves all extremities well. No range of motion deficits. no muscular or joint tenderness. No paraspinal muscle tenderness. no midline spinal tenderness or step-off. Genitourinary: Examination deferred Neurologic: No gross neurologic deficits. Psychiatric: Normal mood. Course - Re-evaluation Re-evalutation: 10/06/18 20:14 Patient's laboratory studies are all normal. X-ray looks good. No constipation. Symptoms consistent with esophagitis. We will start him on Carafate, Prilosec, and Bentyl as needed. Have him follow-up with the clinic as an outpatient. - Vital Signs Vital signs: Temp Pulse Resp BP Pulse Ox 98.3 F 80 16 124/77 99 10/06/18 16:22 10/06/18 16:22 10/06/18 16:22 10/06/18 16:22 10/06/18 16:22 - Laboratory Result Diagrams: 10/06/18 18:04 10/06/18 18:04 Laboratory results interpreted by me: 10/06/18 18:48 Urine Protein 30 H Urine Ketones TRACE H - Diagnostic Test Radiology reviewed: Reports reviewed Discharge - Discharge Clinical Impression: Esophagitis Condition: Good Disposition: HOME, SELF-CARE Instructions: Abdominal Pain ([facility]), Antispasmodics ([facility]), Antacid Therapy ([facility]), Esophagitis ([facility]), Prilosec (Acid Pump Inhibitor) ([facility]), Sucralfate ([facility]) Prescriptions: Dicyclomine HCl [Bentyl 20 mg Tablet] 20 mg PO Q6HP PRN #40 tablet PRN Reason: Omeprazole Magnesium [Prilosec Otc] 20 mg PO DAILY #30 tablet. Sucralfate [Carafate 1 gm Tablet] 1 gm PO QID #40 tablet Referrals: [facility] [Provider Group] - Follow up in 1 week
== END 2018-10-06 20:37 | disposition home or self-care (01) ==
LOC: ER 16:00
DX: K20.9 Esophagitis, unspecified (principal); R05 Cough; R10.13 Epigastric pain
CPT/HCPCS: 99284; 36415; 83690; 85025; 80053; 81001; 74022; J3490 ×4

== ENCOUNTER 2018-11-03 00:17 | Emergency (ER) | payer MEDICAID ==
--- NOTE | 2018-11-03 01:52 | RADIOLOGY REPORT (SQ) ---
EXAM DESCRIPTION: XR HUMERUS COMPLETED DATE/TME: 11/03/2018 00:00 CLINICAL HISTORY: 28 years, Male, Hit elbow on mantle.Pain above elbow area. COMPARISON: None. NUMBER OF VIEWS: 2 TECHNIQUE: 2 view left humerus LIMITATIONS: None. FINDINGS: Negative for fracture or dislocation. Soft tissues are unremarkable IMPRESSION: Negative exam copyright 2010 [employer]- All Rights Reserved
--- NOTE | 2018-11-03 04:31 | ER Document Report ---
ED General - General Chief Complaint: Arm Injury Stated Complaint: ARM INJURY Time Seen by Provider: 11/03/18 04:18 Notes: Patient is a 28-year-old male presents with complaints of pain to the posterior aspect of the left arm. He was on a ladder and try to swap a spider when he fell onto his left arm. Pain is over the left triceps muscle he has bruising and swelling of this area. No pain into the hand or wrist. Normal function of the hand and wrist. TRAVEL OUTSIDE OF THE [place] IN LAST 30 DAYS: No - Related Data Allergies/Adverse Reactions: No Known Allergies Allergy (Unverified 01/23/18 12:08) Past Medical History - Social History Smoking Status: Never Smoker Frequency of alcohol use: None Drug Abuse: None Family History: Reviewed & Not Pertinent Patient has suicidal ideation: No Patient has homicidal ideation: No Renal/ Medical History: Reports: Hx Kidney Stones. Denies: Hx Peritoneal Dialysis Past Surgical History: Reports: Hx Oral Surgery - wisdom teeth Review of Systems - Review of Systems Notes: My Normal Review Basic REVIEW OF SYSTEMS: CONSTITUTIONAL : Denies fever, chills, or sweats. Denies recent illness. MUSCULOSKELETAL: Bruising over the left triceps muscle. SKIN: Denies rash or skin lesions. NEUROLOGICAL: Denies sensory or motor loss. ALL OTHER SYSTEMS REVIEWED AND NEGATIVE. Physical Exam - Vital signs Vitals: Temp Pulse Resp BP Pulse Ox 97.1 F 77 16 126/78 H 100 11/03/18 01:22 11/03/18 01:22 11/03/18 01:22 11/03/18 01:22 11/03/18 01:22 - Notes Notes: General Appearance: Well nourished, alert, cooperative, no acute distress, mild obvious discomfort. Vitals: reviewed, See vital signs table. Extremities: Patient has localized area of bruising and swelling over the left trapezius muscle. He has no swelling over the bony processes of the elbow itself. No pain to palpation over the bony processes of the elbow. No pain with supination and pronation of the forearm. Patient has pain to palpation over the area of swelling over the triceps muscle. He still able to flex and extend his triceps muscle. Good distal sensation in the hand. Skin: warm, dry, appropriate color, no rash Neuro: speech clear, oriented x 3, normal affect, responds appropriately to questions. Course - Re-evaluation Re-evalutation: 11/03/18 04:31 Patient's exam is consistent with that of contusion to the left triceps muscle. X-ray was obtained in triage and this is negative for fracture. I do not suspect triceps tendon injury as patient is able to flex and extend the elbow without difficulty. Feel the patient safe to be discharged home. Encouraged him to call compresses over the area of swelling. I encouraged him return to ER if he has increasing pain, difficulty moving his elbow, or if he feels unwell in any way. Patient agrees with plan will be discharged home. Dictation of this chart was performed using voice recognition software; therefore, there may be some unintended grammatical errors. - Vital Signs Vital signs: Temp Pulse Resp BP Pulse Ox 97.1 F 77 16 126/78 H 100 11/03/18 01:22 11/03/18 01:22 11/03/18 01:22 11/03/18 01:22 11/03/18 01:22 Discharge - Discharge Clinical Impression: Contusion of arm, left Qualifiers: Encounter type: initial encounter Qualified Code(s): S40.022A - Contusion of left upper arm, initial encounter Condition: Good Disposition: HOME, SELF-CARE Additional Instructions: Your x-ray does not show any evidence of broken bones or fracture. It appears that you have a contusion to the triceps muscle. Please rest over the next 24 hours and do cold compresses for 20 minutes at a time. Take Ibuprofen for pain and inflammation. Please return to the ER if you have worsening pain, worsening swelling, numbness or weakness into her hand, or if you have any further concerns. Forms: Return to Work
[2018-11-03 04:35] VITALS: BP 121/86
== END 2018-11-03 04:35 | disposition home or self-care (01) ==
LOC: ER 00:17
DX: S40.022A Contusion of left upper arm, initial encounter (principal); W11.XXXA Fall on and from ladder, initial encounter; Y92.89 Other specified places as the place of occurrence of the external cause
CPT/HCPCS: 99283